=== PATIENT | male | born 1955 | race Caucasian/White ===

== ENCOUNTER 2020-09-07 12:45 | Outpatient (RCR) | payer MEDICARE, MEDICAID, SELFPAY | END 2020-09-15 15:05 | disposition home or self-care (01) | LOC: HO.WCC 12:45 | PROVIDERS: PCP Internal Medicine; Visit Provider Surgery | DX: E11.621 Type 2 diabetes mellitus with foot ulcer (principal); L97.522 Non-pressure chronic ulcer of other part of left foot with fat layer exposed; E11.51 Type 2 diabetes mellitus with diabetic peripheral angiopathy without gangrene; E11.69 Type 2 diabetes mellitus with other specified complication; M86.9 Osteomyelitis, unspecified; M87.9 Osteonecrosis, unspecified; Z79.4 Long term (current) use of insulin; Z79.2 Long term (current) use of antibiotics | CPT/HCPCS: 11044; 87071; 87073; 87077; 87186; 87205; 88305; 88311; 99212 ==

== ENCOUNTER 2021-01-18 15:00 | Outpatient (RCR) | payer MEDICARE, MEDICAID, SELFPAY ==
--- NOTE | 2020-12-19 13:38 | MHC.PT.EP ---
[facility] [place] Office [place] Office [place] Office [address] [phone] F: [phone] F: [phone] F: [phone] F: [phone] Physical Therapy Plan of Care Date of Evaluation: Date of Surgery: Diagnosis: Cerebral infarction, unspecified Assessment: Pt is a 65yo M with a PMH including CVA, diabetes, quadruple bypass and aortic valve replacement. He presents today with weakness s/p CVA in August. He has current impairments in decreased LE strength, decreased endurance, decreased balance, transfers, gait, and safety. He is limited functionally by standing, walking, and ADLs. He is a good candidate for skilled PT services to address current impairments in order to facilitate return to PLOF. Frequency and Duration: The patient will be seen 2x/week for 4 weeks Short Term Goals: Pt will perform sit<>stands with improved safety and RW management Pt will improve hip ABD by 1/2 grade Vice President Compliance Goals: Pt will demonstrate improvements in strength and endurance by achieving a score of at least 10 during 30 second sit to sand Pt will demonstrate improvements in functional mobility as evidenced by statistically significant improvement in LEFI outcome measure Treatment Plan: Modalities to reduce pain, spasms and effusion. Manual therapy to restore motion and function. Therapeutic exercise to improve strength and flexibility. Neuromuscular re-education for posture and balance. Therapeutic activities to return to functional activities of daily living. Electronically signed by: Mela Lugo, PT, DPT Please sign and return to therapist. Thank you for your referral.
--- NOTE | 2021-01-18 17:54 | MHC.PT.DC ---
[facility] [place] Office [place] Office [place] Office [address] Sheets [address] [phone] F: [phone] F: [phone] F: [phone] F: [phone] Physical Therapy Discharge Report Diagnosis: Cerebral infarction, unspecified Date of Surgery: Date of Evaluation: 12/18/20 Date of Discharge: 01/18/21 Treatments to Date: 7 Cancellations to Date: 2 No Shows to Date: Discharge Status: Achieved Goals Improved Function Independent with HEP Discharge Summary: Pt has made good progress since SOC and has demonstrated improvements in LE strength, safety, transfers, and gait with RW. He has met his STGs and made progress toward his LTGs. He reports he feels ready to be D/C from PT. Provided pt with printed, updated copy of HEP and GTB and pt verbalized understanding. Pt reports no further questions or concerns for PT at this time. Pt is being D/C from skilled PT services. No further skilled PT indicated at this time. Electronically signed by: Mela Lugo, PT, DPT Please sign and return to therapist. Thank you for your referral.
== END 2021-01-18 17:54 | disposition home or self-care (01) ==
LOC: HO.PT 15:00
PROVIDERS: PCP Internal Medicine; Visit Provider Internal Medicine
DX: I63.9 Cerebral infarction, unspecified (principal)
CPT/HCPCS: 97110; 97112; 97116; 97162; 97530

== ENCOUNTER 2021-07-12 11:12 | Outpatient (REF) | payer MEDICARE, MEDICAID, SELFPAY ==
[2021-07-12 11:36] LABS: MANUAL DIFF FLAG NO
[2021-07-12 11:48] LABS: Basophils Percent Auto 0.5 % (0-2); Eosinophils Absolute Auto 0.3 X10*3/uL (0.0-0.4); Eosinophils Percent Auto 3.4 % (0-4); Hematocrit 43.7 % (42.0-52.0); Hemoglobin 14.6 g/dl (14.0-18.0); Imm Gran Abs Auto 0.02 X10*3/uL (0.00-0.03); Imm Gran Pct Auto 0.3 % (0.0-0.4); Lymphocytes Absolute Auto 2.7 X10*3/uL (1.2-4.9); Lymphocytes Percent Auto 34.2 % (20-40); Mean Corpuscular HGB Conc 33.4 g/dl (31.0-36.0); Mean Corpuscular Hemoglobin 29.9 pg (27.0-33.0); Mean Corpuscular Volume 89.4 fL (80.0-98.0); Mean Platelet Volume 11.6 fL (9.4-12.4); Monocytes Absolute Auto 0.7 X10*3/uL (0.1-1.2); Monocytes Percent Auto 9.3 % (2-11); Neutrophils Absolute Auto 4.2 x10*3/uL (2.0-8.3); Neutrophils Percent Auto 52.3 % (45-73); Platelet Count 269 X10*3/uL (160-400); Red Blood Count 4.89 X10*6/uL (4.60-5.80); Red Cell Distribution Width 12.8 % (11.0-16.0)
[2021-07-12 11:55] LABS: Estimated Average Glucose 171 mg/dL; Hemoglobin A1c % 7.6 %
[2021-07-12 12:18] LABS: Alanine Aminotransferase 17 U/L (0-40); Albumin Level 4.6 g/dL (3.5-5.0); Alkaline Phosphatase 78 U/L (39-117); Anion Gap 15 (12-20); Aspartate Amino Transferase 14 U/L (5-37); Bilirubin Total 0.7 mg/dL (0.0-1.0); Blood Urea Nitrogen 17 mg/dL (9-16); Calcium 10.6 mg/dL (8.4-10.2); Carbon Dioxide 29 mmol/L (22-29); Chloride 99 mmol/L (96-108); Cholesterol 187 mg/dL; Estimated Glomerular Filt Rate > 60; Glucose Fasting 207 mg/dL (60-99); HDL Cholesterol 33 mg/dL; LDL Cholesterol Calculated 102 mg/dl; Potassium 4.7 mmol/L (3.3-5.1); Sodium 138 mmol/L (135-145); Total Protein 7.5 g/dL (6.5-8.0); Triglycerides 260 mg/dL
[2021-07-12 12:38] LABS: TSH reflex Free T4 2.85 uIU/mL (0.32-4.0); Vitamin D 25-OH Total 32.3 ng/mL (>30)
[2021-07-12 12:57] LABS: Folate 10.8 ng/mL (> or = 4.0); Vitamin B12 262 pg/mL (200-900)
== END 2021-07-12 11:13 | disposition home or self-care (01) ==
LOC: HO.LAB 11:12
PROVIDERS: PCP Internal Medicine; Visit Provider Internal Medicine
DX: I10 Essential (primary) hypertension (principal); E11.9 Type 2 diabetes mellitus without complications; E55.9 Vitamin D deficiency, unspecified; E53.8 Deficiency of other specified B group vitamins; E78.00 Pure hypercholesterolemia, unspecified
CPT/HCPCS: 36415; 80053; 80061; 82306; 82607; 82746; 83036; 84443; 85025

== ENCOUNTER 2021-07-13 | Outpatient (REF) | payer MEDICARE, MEDICAID, SELFPAY ==
[2021-07-13 16:10] LABS: Appearance Urine CLEAR; Color Urine YELLOW; Glucose Urine UA NEG (NEG); Leukocyte Esterase Urine NEG (NEG); Nitrite Urine NEG (NEG); Specific Gravity - Urine 1.015 (1.005-1.025); Urine Blood NEG (NEG); Urine Ketones NEG (NEG); Urine Protein NEG (NEG-TRACE)
[2021-07-13 17:34] LABS: Creatinine Urine 117.68 mg/dL; Microalbum/Creatinine Ratio Ur 20.3 ug/mg cr
== END 2021-07-13 00:01 | disposition home or self-care (01) ==
LOC: HO.LNP
PROVIDERS: Visit Provider Internal Medicine
DX: E11.9 Type 2 diabetes mellitus without complications (principal); I10 Essential (primary) hypertension
CPT/HCPCS: 81003; 82043

== ENCOUNTER 2022-07-19 10:50 | Outpatient (REF) | payer MEDICARE, MEDICAID, SELFPAY ==
[2022-07-19 12:11] LABS: Estimated Average Glucose 126 mg/dL; Hemoglobin A1C 150.7259 umol/L
[2022-07-19 12:44] LABS: Alanine Aminotransferase 11 U/L (0-40); Albumin Level 4.4 g/dL (3.5-5.0); Alkaline Phosphatase 63 U/L (39-117); Anion Gap 13 (12-20); Aspartate Amino Transferase 13 U/L (5-37); Bilirubin Total 0.7 mg/dL (0.0-1.0); Blood Urea Nitrogen 25 mg/dL (9-16); Carbon Dioxide 28 mmol/L (22-29); Chloride 106 mmol/L (96-108); Cholesterol 211 mg/dL; Estimated Glomerular Filt Rate > 60; Glucose Fasting 103 mg/dL (60-99); HDL Cholesterol 38 mg/dL; LDL Cholesterol Calculated 132 mg/dl; Potassium 4.5 mmol/L (3.3-5.1); Sodium 142 mmol/L (135-145); Total Protein 6.9 g/dL (6.5-8.0); Triglycerides 207 mg/dL
[2022-07-19 12:59] LABS: Vitamin D 25-OH Total 33.8 ng/mL (>30)
== END 2022-07-19 10:51 | disposition home or self-care (01) ==
LOC: HO.LAB 10:50
PROVIDERS: PCP Internal Medicine; Visit Provider Internal Medicine
DX: E11.9 Type 2 diabetes mellitus without complications (principal); E55.9 Vitamin D deficiency, unspecified; E78.00 Pure hypercholesterolemia, unspecified
CPT/HCPCS: 36415; 80053; 80061; 82306; 83036

== ENCOUNTER 2022-07-22 17:42 | Outpatient (REF) | payer MEDICARE, MEDICAID, SELFPAY ==
[2022-07-22 19:16] LABS: Appearance Urine Cloudy; Color Urine Yellow; Glucose Urine UA Negative (Negative); Leukocyte Esterase Urine Negative (Negative); Nitrite Urine Negative (Negative); PH 5.5 (5.0-9.0); Urine Blood Negative (Negative); Urine Ketones Negative (Negative); Urine Protein Negative (Neg-Trace)
== END 2022-07-22 17:43 | disposition home or self-care (01) ==
LOC: HO.LNP 17:42
PROVIDERS: Visit Provider Internal Medicine
DX: R30.0 Dysuria (principal)
CPT/HCPCS: 81003

== ENCOUNTER 2022-12-12 15:54 | Outpatient (AMB) | payer MEDICARE, SELFPAY ==
[2022-12-12 16:04] VITALS: BP 120/62; PULSE 113; BMI 24.7
--- NOTE | 2022-12-12 16:04 | A.OFFVIS_ITS ---
Intake Vital Signs 12/12/22 16:04 Height 5 ft 5 in Weight 148 lb 9.465 oz BMI 24.7 BP 120/62 Blood Pressure Location Lt brachial Position Sitting Pulse 113 H Intake Visit Reasons: overdue follow-up Sole Rounding Machine Operator Required: No Shower Doors And Panels Fabricator: Shower Doors And Panels Fabricator Present Accompanied by: Significant Other Allergies Penicillins Allergy (Unknown, Verified 12/12/22 16:08) RASH Medication List - Last Reconciled 12/12/22 by RICARDO Savage acetaminophen (Tylenol) 650 mg (2 x 325 mg) PO Q4H PRN atorvastatin 80 mg PO BEDTIME 90 days blood sugar diagnostic (FreeStyle Lite Strips) As [id number] a day In Vitro daily blood-glucose meter (FreeStyle Lite Meter kit) TEST 2-3 TIMES DAILY clopidogrel 75 mg PO DAILY doxycycline monohydrate 100 mg PO BID escitalopram oxalate 5 mg PO DAILY 30 days insulin glargine (Lantus Solostar U-100 Insulin) 20 units (0.2 mL) subcut QPM insulin lispro (Humalog KwikPen (U-100) Insulin) 8 - 18 units (0.08 - 0.18 mL) subcut TID isosorbide mononitrate ER 30 mg PO DAILY [LIGHTWEIGHT WHEELCHAIR As directed] meclizine 25 mg PO DAILY metformin 1,000 mg PO BID HPI overdue follow-up HPI Details Tye is a 67-year-old male with past medical history of hypertension, hyperlipidemia, diabetes, coronary artery disease, presumed aortic stenosis, status post 4 vessel coronary artery bypass grafting and bioprosthetic aortic valve replacement 08/30/2013, residual ischemic cardiomyopathy, EF last known to be 45-50% who presents for follow-up. His last prior visit to our office was 03/10/2018. Today he presents for cardiology follow-up as new patient as it has been greater than 3 years since his last visit. His tells me he has had a stroke and has difficulty with his speech and mobility. Upon entering the office I find him to be pale in color. He tells me he just vomited in the trash can. His states that he has episodes of dizziness when moving around and this makes him nauseous at times. She says he is mostly very sedentary at home. He ambulates only short distances using a walker. It has been hard for her to get him to office visits which is why they have not been here in for years. He denies having any chest discomfort at rest or during activity. He denies shortness of breath, palpitations, presyncope, syncope, falls. No PND, orthopnea or edema. Taking medications as directed. Offered ER visit for his current symptoms and he declines. 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 Slurred speech from prior CVA. Reports dizziness Card Denies chest pain, Denies chest pain at rest, Denies chest pain with activity, Reports rapid heart rate, Denies pedal edema, Denies edema, Denies leg edema, Denies lightheadedness, Denies palpitations, Denies dyspnea, Denies dyspnea on exertion and Denies orthopnea Resp Denies cough, Denies dyspnea and Denies dyspnea on exertion GI Denies hematochezia and Denies change in stool character Musc Details: generalized weakness, ambulates with walker Reports abnormal gait, Reports limited range of motion, Denies muscle cramps, Reports muscle weakness, Denies numbness, Denies radiating pain into limb, Denies stiffness and Denies tingling Neuro Reports abnormal gait, Reports dizziness, Denies numbness and Denies tingling Endo Denies palpitations Physical Exam Vital Signs: Last Vital Signs Pulse 113 H 12/12/22 16:04 BP 120/62 12/12/22 16:04 BMI result Body Mass Index 24.7 Const Other: sallow skin color, hands cold to touch General: cooperative and no acute distress Orientation/consciousness: patient oriented x3 Neck Neck: Yes normal visual inspection and Yes no JVD Resp Effort & Inspection: normal respiratory effort Auscultation: clear to auscultation bilaterally, no crackles, no rales, no rhonchi and no wheezes Cardio Jugular venous distension: no JVD Rate: tachycardic Rhythm: regular rhythm Heart sounds: S1 normal heart sound present, S2 normal heart sound present, no murmurs and no rubs Neuro General: patient oriented x3 Extrem General: Yes normal to inspection Psych Appearance: grossly normal Mental Status: mental status grossly normal Office Procedures EKG Details: Today, read by me, sinus tachycardia, ST and T-wave abnormality, consider inferior ischemia, rate 113, QTC 463 millisecond [id number], Complete Assessment & Plan Assessment & Plan (1) Coronary artery disease: Comment: S/P quadruple bypass in 2013 Code(s): I25.10 - Atherosclerotic heart disease of [place] coronary artery without angina pectoris Qualifiers: Associated angina: without angina Coronary Disease-Associated Artery/Lesion type: [place] artery [place] vs. transplanted heart: [place] heart Qualified Code(s): I25.10 - Atherosclerotic heart disease of [place] coronary artery without angina pectoris Plan: History of coronary artery disease. Coronary artery bypass grafting done 08/30/[address] Calderón. Parker to LAD, SVG to OM 1, om 2, right PDA. He did undergo bioprosthetic AVR at that time as well. He denies having any recent chest discomfort at rest or with activity. He admits to being mostly sedentary and walks only short distances with assistive device. He is not on aspirin for unclear reason. He is on Plavix, high-dose atorvastatin with ideal LDL goal less than 70. He also remains on isosorbide, for unclear reason. He is not on beta-ethel. Pulse rate elevated initially however patient nauseous and vomited in the room. Offered ER evaluation he declines. EKG done today showing sinus tachycardia, ST and T-wave abnormality suggesting possible inferior ischemia. After resting in pulse rate return to the 90s and blood pressure recheck 96/42. Will check lab work including BMP, CBC and lipid profile. Will check echocardiogram to assess EF, wall motion and valve function. Will check pharmacological nuclear stress test to assess for any ischemia. Emergency care if needed for symptoms. Plan to call him with test results, sooner appointment if needed. Will arrange for office visit in 3 months, sooner if needed. states that is difficult to get him in to the office. History of prior CVA and limited mobility. (2) Aortic valve stenosis, severe: Comment: S/P aortic valve replacement in 2013 - Dr. Nba Calderón Code(s): I35.0 - Nonrheumatic aortic (valve) stenosis Plan: History of bioprosthetic AVR, 08/30/2013. No recent echocardiogram for review. No significant murmur noted on examination. Will be obtaining updated echo as above. (3) Aortic valve replaced: Comment: 08/30/2013 aortic valve replacement with a 23 Magna pericardial valve (Dr. Nba Calderón) Code(s): Z95.2 - Presence of prosthetic heart valve (4) CVA (cerebrovascular accident): Code(s): I63.9 - Cerebral infarction, unspecified Plan: Reported to have had CVA in the last few years according to his . He has residual speech disturbances and slow mobility. He has episodes dizziness with ambulation which sounds like vertigo. describes him as being very sedentary. (5) Benign essential hypertension: Code(s): I10 - Essential (primary) hypertension Plan: Well controlled at this time. No med changes made at present. Following updated testing will consider stop of isosorbide and start of metoprolol. He had been on metoprolol in past. Unclear why it was stopped. EKG today shows sinus tach, rate 113, normal SC, QRS and QTC intervals. (6) Mixed hyperlipidemia: Code(s): E78.2 - Mixed hyperlipidemia Plan: [place] LDL goal less than 70 in patient with CAD. Labs done 07/19/2022 showed LDL 132. Repeat fasting lipid profile ordered. Continue high-dose atorvastatin. (7) History of quadruple bypass: Comment: 08/30/2013 quadruple coronary artery bypass grafting; parker to LAD, SVG to OM 1, om2 and right PDA Code(s): Z95.1 - Presence of aortocoronary bypass graft Orders: Orders Basic Metabolic Panel 12/12/22 I35.0 - Nonrheumatic aortic (valve) stenosis Lipid Panel 12/12/22 E78.5 - Hyperlipidemia, unspecified Complete Blood Count Auto Diff 12/12/22 R53.1 - Weakness CA echo transthoracic complete 12/12/22 I35.0 - Nonrheumatic aortic (valve) stenosis CA lexiscan stress w marj 12/12/22 I10 - Essential (primary) hypertension, I25.10 - Atherosclerotic heart disease of [place] coronary artery without angina pectoris, I35.0 - Nonrheumatic aortic (valve) stenosis, I63.9 - Cerebral infarction, unspecified, R94.31 - Abnormal electrocardiogram [ECG] [EKG] NM cardiolite stress test 12/12/22 I25.10 - Atherosclerotic heart disease of [place] coronary artery without angina pectoris, R94.31 - Abnormal electrocardiogram [ECG] [EKG] Coding Level of Care Code Est Pt Level 4 (99768) Diagnoses Coronary artery disease involving [place] coronary artery of [place] heart without angina pectoris I25.10 Associated angina: without angina Coronary Disease-Associated Artery/Lesion type: [place] artery [place] vs. transplanted heart: [place] heart Aortic valve stenosis, severe I35.0 Aortic valve replaced Z95.2 CVA (cerebrovascular accident) I63.9 Benign essential hypertension I10 Mixed hyperlipidemia E78.2 History of quadruple bypass Z95.1 CPT Codes EKG - CPT: [id number], Complete ([id number]) Time Spent (min) 30
== END 2022-12-12 16:45 | disposition home or self-care (01) ==
PROVIDERS: PCP Internal Medicine; Visit Provider Nurse Practitioner Family
DX: R00.0 Tachycardia, unspecified (principal)
CPT/HCPCS: 93010; 99214

== ENCOUNTER → 2022-12-12 15:54 | Outpatient (BNVA) | payer MEDICARE, SELFPAY | PROVIDERS: PCP Internal Medicine; Visit Provider Nurse Practitioner Family | DX: I25.10 Atherosclerotic heart disease of native coronary artery without angina pectoris (principal); I35.0 Nonrheumatic aortic (valve) stenosis; I63.9 Cerebral infarction, unspecified; I10 Essential (primary) hypertension; E78.2 Mixed hyperlipidemia; Z95.1 Presence of aortocoronary bypass graft; Z95.2 Presence of prosthetic heart valve | CPT/HCPCS: 93005; 99212 ==

== ENCOUNTER → 2023-02-11 08:36 | Outpatient (REF) | payer MEDICARE, SELFPAY ==
--- NOTE | 2023-02-11 08:46 | CA_ITS ---
Transthoracic Echocardiogram Patient (Last, First, Middle): Tye Santos, Gender: Male Date of : 1955 Age: 67 Procedure Date: 02/11/2023 Procedure Type: Transthoracic Echocardiogram Location: OP Height: 162.56 cm Weight: 63.5 kg BSA: 1.68 m2 Heart Rate: bpm BP: 110 / 60 mmHg Veneer Press Operator: TO Referring MD: Chelo León BILLIARD TABLE MECHANICAudi Symptoms: I35.0 - Nonrheumatic aortic (valve) stenosis Study Quality: Technically Difficult/Contrast ECG Rhythm: Sinus Conclusions: - The left ventricular systolic function is normal. The visually estimated ejection fraction is between 60-65%. - A bioprosthetic aortic valve is present. The prosthetic aortic valve appears to be functioning normally. Findings Procedure Information Contrast agent, definity, is being given per protocol without apparent complications. Left Ventricle Normal left ventricular cavity size. There is mildly increased left ventricular wall thickness. The left ventricular systolic function is normal. The visually estimated ejection fraction is between 60-65%. There is no evidence of regional wall motion abnormalities. Diastolic function is normal for age. There is moderate septal asymmetric hypertrophy. Right Ventricle Normal right ventricular cavity size. There is severely decreased right ventricular systolic function. Atria Both atria are normal in size. Aortic Valve A bioprosthetic aortic valve is present. The prosthetic aortic valve appears to be functioning normally. There is no aortic valve regurgitation. Mitral Valve There is mild anterior mitral leaflet thickening. There is mild mitral annular calcification. There is trace mitral valve regurgitation. There is no mitral valve stenosis. Pulmonic Valve There is trace pulmonic valve regurgitation. Tricuspid Valve Normal tricuspid valve structure. There is trace tricuspid valve regurgitation. There is no evidence of pulmonary hypertension. Great Vessels The asc aorta is normal in size. Small plaque is seen in the sinuses of Valsalva. Venous The inferior vena cava was not well visualized. Pericardium/Pleural There is no evidence of pericardial effusion. Prior Study Comparison No significant change compared to prior study dated: 07/16/2018. Measurements 2D Linear Measurements IVSd: 1.47 0.6-0.9/0.6-1.0 cm LVIDd: 3.49 3.9-5.3/4.2-5.9 cm LVIDd Index: 2.08 2.4-3.2/2.2-3.1 cm/m2 LVIDs: 2.53 2.0-3.6 cm LVPWd: 1.13 0.7-1.1 cm LA Diam: 3.40 2.7-3.8/3.0-4.0 cm LAIDs Index: 2.02 1.5-2.3 cm/m2 LV Mass: 190.69 67-162/88-224 g LV Mass Index: 113.51 43-95/49-115 g/m2 LVOT Diam: 1.90 3.0+(-)1.3 cm 2D Systolic Function EF 4C: 54.80 >55% Mitral Valve MV VTI: 0.21 MV Pk Santy: 1.19 MV Mn Santy: 0.56 MV Pk Grad: 6.00 MV Mn Grad: 1.00 MV Pk E: 0.37 MV PK A: 0.94 MV Decel Time: 267.00 E/A: 0.40 E'Lateral: 9.14 E'Medial: 4.35 E/E' Med: 8.50 E/E' Lat: 4.00 PHT: 78.00 MVA PHT: 2.82 MVA Continuity: 1.97 Decel [place]: 1.38 Aortic Valve AoV Pk Santy: 1.91 AoV Mn Santy: 1.26 AoV VTI: 0.32 AoV Pk Grad: 15.00 Aov Mn Grad: 7.00 NESS Cont.VTI: 1.30 LVOT LVOT Pk Santy: 0.83 LVOT Mn Santy: 0.60 LVOT VTI: 0.15 LVOT Pk Grad: 3.00 LVOT Mn Grad: 2.00 LVOT Diam: 1.90 LVOT Area: 2.84 Diastolic Function MV Pk E: 0.37 MV Pk A: 0.94 E/A: 0.40 E'Medial: 4.35 E/E' Med: 8.50 E' Laterial: 9.14 E/E' Lat: 4.00 Right Ventricle TVS' Santy: 6.31 Great Vessels Aorta Sinus of Valsalva: 3.20 2.0-3.5 cm Ao Asc: 3.60 2.1-3.4 cm Ao Arch: 2.70 Updated in Other Vendor System with Status of Final Ayaan Workman MD electronically signed on 02/11/2023 12:34:48 PM with status of Final
--- NOTE | 2023-02-11 08:46 | CA_ITS ---
Acquisition Time: 2023-02-11 10:15:11 Total Exercise Time: 00:02:00 Test Indications: Abnormal EKG, CAD Medications: atorvastatin plavix doxycycline escitalopram insulin glargine insulin lispro isosorbide meclizine metformin Protocol: LEXISCAN Max HR: 110 BPM 71% of Pred: 154 BPM Max BP: 118/064 mmHG Max Work Load: 1.0 METS Pharmacological stress test with Lexiscan injection, while sitting and kicking his legs, without anginal symptoms, without arrythmia, with normotensive response to injection, with nondiagnostic EKG for ischemia. In recovery he had vomiting which was treated with Aminophylline 75mg IVP to reverse Lexiscan with improvement in symptom. Nuclear images pending. Test reviewed with Dr Aranda. Referred By: Chelo León Overread By: Maria Luz Schulte
== END ==
LOC: HO.CARD 08:36
PROVIDERS: PCP Internal Medicine; Visit Provider Nurse Practitioner Family
DX: R94.31 Abnormal electrocardiogram [ECG] [EKG] (principal); I25.10 Atherosclerotic heart disease of native coronary artery without angina pectoris; I35.0 Nonrheumatic aortic (valve) stenosis; Z95.2 Presence of prosthetic heart valve
CPT/HCPCS: 78452; 93017; 93306; A9500; J0280; J2785; Q9957

== ENCOUNTER → 2023-02-11 08:46 | Outpatient (BNV) | payer MEDICARE, SELFPAY | PROVIDERS: PCP Internal Medicine; Visit Provider Internal Medicine | DX: I25.10 Atherosclerotic heart disease of native coronary artery without angina pectoris (principal); R94.31 Abnormal electrocardiogram [ECG] [EKG] | CPT/HCPCS: 78452; 93016; 93018; 93306 ==

== ENCOUNTER 2023-04-08 12:12 | Outpatient (AMB) | payer MEDICARE, SELFPAY ==
[2023-04-08 12:41] VITALS: BP 130/72; PULSE 88; O2SAT 98; BMI 24.3
--- NOTE | 2023-04-08 12:41 | MHC.PC.OV ---
Vital Signs 04/08/23 12:41 Height 5 ft 5 in Weight 146 lb BMI 24.3 BP 130/72 Blood Pressure Location Lt brachial Position Sitting Pulse 88 Pulse Source Pulse Oximeter Pulse Oximetry (%) 98 Oxygen Delivery Method Room Air Intake Visit Reasons: F/U Hackler Doll Wigs: Present Allergies Penicillins Allergy (Unknown, Verified 04/08/23 13:19) RASH Medication List - Last Reconciled 04/08/23 by Tony Soto MD acetaminophen (Tylenol) 650 mg (2 x 325 mg) PO Q4H PRN atorvastatin 80 mg PO BEDTIME 90 days blood sugar diagnostic (FreeStyle Lite Strips) As goeizttd-0-3 a day In Vitro daily blood-glucose meter (FreeStyle Lite Meter kit) TEST 2-3 TIMES DAILY clopidogrel 75 mg PO DAILY doxycycline monohydrate 100 mg PO BID insulin glargine (Lantus Solostar U-100 Insulin) 20 units (0.2 mL) subcut QPM insulin lispro (Humalog KwikPen (U-100) Insulin) 8 - 18 units (0.08 - 0.18 mL) subcut TID isosorbide mononitrate ER 30 mg PO DAILY [LIGHTWEIGHT WHEELCHAIR As directed] meclizine 25 mg PO DAILY metformin 1,000 mg PO BID metoprolol succinate ER 25 mg PO DAILY Tobacco use date assessed: 04/08/23 Fall risk assessment: No Falls in past year Last assessed Fall Risk: 04/08/23 Dental Screening Dental Screen Date: 04/08/23 Did you have a dental visit in the last 12 months?: Yes Did you have a dental problem in the last 6 months where you did not have access to dental care?: No Was dental information given to patient?: Patient has dentist HPI F/U HPI Details Patient comes in today for his follow up visit - was last seen by me in April 2022 Patient states that he feels okay His states that she took him off his Escitalopram 5 mg a couple of weeks ago as he was too drowsy/sedated and he gradually became more alert since she stopped giving him his Escitalopram Rx Patient denies any headaches or dizziness and states that he does not feel depressed at all presently Denies any chest pains, no SOB No nausea/vomiting, no abdominal pain No change in bowel habits noted He has no follow up labs done recently Patient had cardiac stress testing and echocardiogram done with cardiology last month and was reportedly told that his tests all came out good [facility] Medical History Osteomyelitis of toe Overweight (BMI 25.0-29.9) Depression REM sleep behavior disorder Vitamin D deficiency Mixed hyperlipidemia Benign essential hypertension Aortic valve stenosis, severe Coronary artery disease Peripheral vascular occlusive disease Amputation of toe Diabetic neuropathy Type 2 diabetes mellitus with hyperglycemia Hyperlipidemia Surgical History Amputation of toe of left foot Amputation of toe of right foot Aortic valve replaced History of quadruple bypass Family History Father Stroke Cancer Mother Stroke Cancer Diabetes Social History Housing: House Alcohol intake: never Patient Tobacco Use Status: Never used Tobacco e-Cigarette/Vaping Use: Never Used Second Hand Smoke Exposure: No service: No Current occupational status: retired and disabled Cognitive needs: Yes Hearing needs: No Vision needs: Yes Questionnaire PHQ-9 Over the last 2 weeks, how often have you been bothered by any of the following problems? 1. Little interest or pleasure in doing things: not at all 2. Feeling down, depressed, or hopeless: not at all 3. Trouble falling or staying asleep, or sleeping too much: not at all 4. Feeling tired or having little energy: not at all 5. Poor appetite or overeating: not at all 6. Feeling bad about yourself - or that you are a failure or have let yourself or your family down: not at all 7. Trouble concentrating on things, such as reading the newspaper or watching television: not at all 8. Moving or speaking so slowly that other people could have noticed. Or the opposite - being so fidgety or restless that you have been moving around a lot more than usual: not at all 9. Thoughts that you would be better off or of hurting yourself in some way: not at all Total score: 0 Depression Screening Interpretation: Negative Depression Screening Done: Yes 99981 - PHQ-9 Billing: Yes Source: Developed by Drs. Bryant L. Too, Gilbert Salcido and colleagues, with an educational babar from [employer]. Thrive Questionnaire Date Thrive assessed: 04/08/23 I am a: Patient What is your living situation today?: I have a steady place to live Within the past 12 months, did the food you bought not last and you didn't have the money to get more?: Never true Within the past 12 months, did you worry whether your food would run out before you got money to buy more?: Never true Do you have trouble paying for medicines?: No Do you have trouble getting transportation to medical appointments?: No Do you have trouble paying your heating and electricity bill?: No Do you have trouble taking care of your child, family member or friend?: No Do you have trouble with day-to-day activities such as bathing, preparing meals, shopping, managing finances, etc.?: No Are you currently unemployed and looking for a job?: No Are you interested in more education?: No Please select the resources that you would like help with: None Currently or been in a relationship where the following occur: no concerns reported THRIVE Score: 0 AUDIT C Alcohol Use Questionnaire (AUDIT-C) 1. How often do you have a drink containing alcohol?: Never 3. How often do you have six or more drinks on one occasion?: Never Total Score: 0 Score Reviewed/Action Taken: Yes AISHWARYA-7 AMB Questionnaire AISHWARYA-7 Date AISHWARYA - 7 assessed: 04/08/23 Feeling nervous, anxious, or on edge: 0 = Not at all Not being able to stop or control worryin = Not at all Worrying too much about different things: 0 = Not at all Trouble relaxin = Not at all Being so restless that it is hard to sit still: 0 = Not at all Becoming easily annoyed or irritable: 0 = Not at all Feeling afraid as if something awful might happen: 0 = Not at all Total AISHWARYA-7 score (0-4 normal; 5-9 mild; 10-14 moderate; 15-21 severe): 0 Source: Developed by Drs. Bryant Gage, Gilbert Salcido and colleagues, with an educational babar from [employer]. Review of Systems Const Denies chills, Reports fatigue, Denies fever(s) and Denies headache(s) ENT Denies dysphagia, Denies dizziness, Denies otalgia, Denies headache(s), Denies neck pain, Denies odynophagia, Denies sinus pain and Denies sore throat Card Denies chest pain, Denies palpitations and Denies dyspnea Resp Denies cough and Denies dyspnea GI Denies abdominal pain, Denies constipation, Denies dysphagia, Denies heartburn, Denies diarrhea, Denies nausea, Denies odynophagia and Denies vomiting Denies dysuria, Denies nocturia and Denies urinary frequency Musc Reports abnormal gait (uses a walker when ambulating; has prosthetic right leg), Denies back pain and Denies neck pain Skin/Breast Denies rash Neuro Reports abnormal gait (uses a walker when ambulating; has prosthetic right leg), Denies dizziness and Denies headache(s) Psych Denies anxiety and Denies depression Endo Reports fatigue and Denies palpitations Physical exam (Primary Care) Vital Signs: Last Vital Signs Pulse 88 04/08/23 12:41 BP 130/72 04/08/23 12:41 Pulse Ox 98 04/08/23 12:41 Oxygen Delivery Method Room Air 04/08/23 12:41 BMI result Body Mass Index 24.3 Tobacco/Smoking Status: Tobacco use Status Tobacco use date assessed 04/08/23 04/08/23 12:43 Patient Tobacco Use Status Never used Tobacco 04/08/23 12:41 e-Cigarette/Vaping Use Never Used 04/08/23 12:41 PHQ-9: PHQ-9 Score PHQ-9: Total score 0 04/08/23 12:57 Depression Screening Interpretation: Negative Thrive Assessment: Date of Thrive Assessment Date Thrive assessed 04/08/23 04/08/23 12:43 Currently or been in a relationship where the following occur: no concerns reported Const General: no acute distress and alert HENMT Ears: TM's normal bilaterally and EAC's normal Throat: Yes posterior oropharynx normal and Yes tonsils normal (no TP congestion noted) Neck Neck: Yes no lymphadenopathy and Yes supple Resp Auscultation: clear to auscultation bilaterally, no rales and no wheezes Cardio Rate: regular rate Rhythm: regular rhythm Heart sounds: no murmurs GI Palpation (GI): Soft to palpation and nontender Auscultation: normal bowel sounds Skin Rashes: no rashes Extrem Other: 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 General: Yes no clubbing, cyanosis or edema (on left lower extremity; S/P right BKA) Results AMB Hemoglobin A1c AMB Hemoglobin A1c 6.2 % Last Edit by CECILIA Galeas on 04/08/23 12:58 Results Reviewed Results Reviewed: Laboratory Last Values Hgb A1c (Clinic) 6.2 % (4.0-6.0) H 04/08/23 12:43 Assessment and Plan Assessment & Plan (1) Type 2 diabetes mellitus with hyperglycemia: Code(s): E11.65 - Type 2 diabetes mellitus with hyperglycemia Qualifiers: Diabetes mellitus emt intermediate insulin use: with emt intermediate use Qualified Code(s): E11.65 - Type 2 diabetes mellitus with hyperglycemia; Z79.4 - jail (current) use of insulin Plan: In-office HgbA1c done today is at 6.2% (HgbA1c was at 6.0% back in July 2022) - goal is at least < 7.5% Reinforced diabetic diet Continue Lantus 20 units QD, Humalog 8 to 18 units TID with meals per sliding scale and Metformin 1000 mg BID Follow-up with endocrinology as scheduled (2) Coronary artery disease: Comment: S/P quadruple bypass in 2013 Code(s): I25.10 - Atherosclerotic heart disease of [place] coronary artery without angina pectoris Qualifiers: Coronary Disease-Associated Artery/Lesion type: [place] artery [place] vs. transplanted heart: [place] heart Associated angina: without angina Qualified Code(s): I25.10 - Atherosclerotic heart disease of [place] coronary artery without angina pectoris Plan: Currently asymptomatic Continue Aspirin 81 mg QD, Clopidogrel 75 mg QD and Isosorbide Mononitrate ER 30 mg QD He had cardiolite stress testing and echocardiogram done last month (February 2023) and his tests all came out okay Follow-up with cardiology as scheduled (3) Mixed hyperlipidemia: Code(s): E78.2 - Mixed hyperlipidemia Plan: Reinforced low-cholesterol diet Continue Atorvastatin 80 mg QD and Ezetimibe 10 mg QD Will have patient recheck his labs and fasting lipids in 3 months for follow-up (4) Aortic valve stenosis, severe: Comment: S/P aortic valve replacement in 2013 - Dr. 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 Continue Cilostazol 50 mg BID and Clopidogrel 75 mg QD Follow-up with Infectious Disease and vascular surgery as scheduled Was reassured by vascular surgery last year that his bypass graft remains patent based on recent US - gets repeat US every 6 months for continuing surveillance (7) Vitamin D deficiency: Code(s): E55.9 - Vitamin D deficiency, unspecified Plan: Continue Vitamin D3 2000 units QD (8) REM sleep behavior disorder: Code(s): G47.52 - REM sleep behavior disorder Plan: Continue Gabapentin 600 mg Q HS Follow up with neurology as scheduled (9) Osteomyelitis of toe: Comment: S/P amputation of left 2nd toe on 09/19/2020; S/P right 5th toe amputation in 05/2017; S/P left 5th toe amputation of toe 01/30/2018; right 1st toe amputation in 08/2019 Code(s): M86.9 - Osteomyelitis, unspecified Plan: Resolved - left toe wound/stump has reportedly healed up completely now Follow-up with vascular surgery as scheduled (10) Depression: Code(s): F32.A - Depression, unspecified Qualifiers: Depression Type: major depressive disorder Major depression recurrence: recurrent Active/Remission status: currently active Major depression episode severity: unspecified Qualified Code(s): F33.9 - Major depressive disorder, recurrent, unspecified Plan: Was on Sertraline 50 mg QD previously but he apparently stopped taking this at some point Was then started on Escitalopram 5 mg QD and he took this for a while until his stopped this a couple of weeks ago due to sedation States that patient has been more alert since and he denies feeling depressed at this time Will continue to hold off on any additional Rx at this time but they are encouraged to call if patient starts to feel depressed again at any time Plan Follow up in 3 months Orders: Orders AMB Hemoglobin A1c Today E11.65 - Type 2 diabetes mellitus with hyperglycemia Complete Blood Count Auto Diff 3 Months D64.9 - Anemia, unspecified Lipid Panel 3 Months E78.00 - Pure hypercholesterolemia, unspecified Comprehensive [place]. Panel Fast 3 Months E78.00 - Pure hypercholesterolemia, unspecified Microalbumin, Random (w Creat) 3 Months E11.9 - Type 2 diabetes mellitus without complications Vitamin D 25-OH Total 3 Months E55.9 - Vitamin D deficiency, unspecified Hemoglobin A1c 3 Months E11.9 - Type 2 diabetes mellitus without complications TSH reflex Free T4 3 Months E78.00 - Pure hypercholesterolemia, unspecified UA CC w/rflx Micro + Cult 3 Months R30.0 - Dysuria Coding Level of Care Code Est Pt Level 4 (86647) Diagnoses Type 2 diabetes mellitus with hyperglycemia, with long-term current use of insulin E11.65; Z79.4 Diabetes mellitus nursing home insulin use: with nursing home use Coronary artery disease involving [place] coronary artery of [place] heart without angina pectoris I25.10 Coronary Disease-Associated Artery/Lesion type: [place] artery [place] vs. transplanted heart: [place] heart Associated angina: without angina Mixed hyperlipidemia E78.2 Aortic valve stenosis, severe I35.0 Benign essential hypertension I10 Peripheral vascular occlusive disease I73.9 Vitamin D deficiency E55.9 REM sleep behavior disorder G47.52 Osteomyelitis of toe M86.9 Episode of recurrent major depressive disorder, unspecified depression episode severity F33.9 Depression Type: major depressive disorder Major depression recurrence: recurrent Active/Remission status: currently active Major depression episode severity: unspecified
== END 2023-04-08 13:25 | disposition home or self-care (01) ==
PROVIDERS: PCP Internal Medicine; Visit Provider Internal Medicine
DX: E11.65 Type 2 diabetes mellitus with hyperglycemia (principal); Z79.4 Long term (current) use of insulin; I73.9 Peripheral vascular disease, unspecified; M86.9 Osteomyelitis, unspecified; F33.9 Major depressive disorder, recurrent, unspecified; I25.10 Atherosclerotic heart disease of native coronary artery without angina pectoris; E78.2 Mixed hyperlipidemia; I35.0 Nonrheumatic aortic (valve) stenosis; I10 Essential (primary) hypertension; E55.9 Vitamin D deficiency, unspecified; G47.52 REM sleep behavior disorder
CPT/HCPCS: 83036; 99214

== ENCOUNTER 2023-05-27 13:16 | Outpatient (AMB) | payer MEDICARE, SELFPAY ==
--- NOTE | 2023-05-27 13:35 | MHC.OFFVIS ---
Intake Vital Signs 05/27/23 13:36 Height 5 ft 5 in Weight 143 lb 4.807 oz BMI 23.8 BP 122/74 Blood Pressure Location Lt brachial Position Sitting Pulse 88 Intake Visit Reasons: r/s 04/07/23 3 mos followup Intake Note: 3 month follow-up hearts doing ok Strategic Planning Analyst Required: No Senior Analyst Developer: Senior Analyst Developer Present Accompanied by: Spouse Allergies Penicillins Allergy (Unknown, Verified 04/08/23 13:19) RASH Medication List - Last Reconciled 05/27/23 by Markus Venegas MD acetaminophen (Tylenol) 650 mg (2 x 325 mg) PO Q4H PRN atorvastatin 80 mg PO BEDTIME 90 days blood sugar diagnostic (FreeStyle Lite Strips) As lyigsgnf-7-7 a day In Vitro daily blood-glucose meter (FreeStyle Lite Meter kit) TEST 2-3 TIMES DAILY clopidogrel 75 mg PO DAILY doxycycline monohydrate 100 mg PO BID insulin glargine (Lantus Solostar U-100 Insulin) 20 units (0.2 mL) subcut QPM insulin lispro (Humalog KwikPen (U-100) Insulin) 8 - 18 units (0.08 - 0.18 mL) subcut TID isosorbide mononitrate ER 30 mg PO DAILY [LIGHTWEIGHT WHEELCHAIR As directed] meclizine 25 mg PO DAILY metformin 1,000 mg PO BID metoprolol succinate ER 25 mg PO DAILY HPI HPI Comments History of Present Illness Details Tye comes for follow-up. Accompanied by his . As per the he is very sedentary. He had a fall 2 days ago but does not recall. says memory is also been an issue. He continues to have. She issues as well as balance issues. This has weakness on left side of his face. No cardiac symptoms to report. Denies any worsening chest pain or shortness of breath with exertion. No orthopnea, PND, leg edema. He has not having lightheadedness any longer. Denies any syncopal episodes. Takes all his medications regularly. [facility] Medical History Osteomyelitis of toe Overweight (BMI 25.0-29.9) Depression REM sleep behavior disorder Vitamin D deficiency Mixed hyperlipidemia Benign essential hypertension Aortic valve stenosis, severe Coronary artery disease Peripheral vascular occlusive disease Amputation of toe Diabetic neuropathy Type 2 diabetes mellitus with hyperglycemia Hyperlipidemia Surgical History Amputation of toe of left foot Amputation of toe of right foot Aortic valve replaced History of quadruple bypass Family History Father Stroke Cancer Mother Stroke Cancer Diabetes Social History Housing: House Alcohol intake: never Patient Tobacco Use Status: Never used Tobacco e-Cigarette/Vaping Use: Never Used Second Hand Smoke Exposure: No service: No Current occupational status: retired and disabled Cognitive needs: Yes Hearing needs: No Vision needs: Yes Review of Systems Const Denies chills, Denies fatigue, Denies fever(s), Denies frequent falls, Denies weakness, Denies weight gain and Denies weight loss ENT Denies dizziness Card Denies chest pain, Denies leg edema, Denies lightheadedness, Denies palpitations, Denies dyspnea, Denies dyspnea on exertion, Denies orthopnea and Denies other (loss of consciousness) Resp Denies cough, Denies dyspnea and Denies dyspnea on exertion GI Denies hematochezia and Denies change in stool character Musc Denies abnormal gait, Denies muscle weakness, Denies numbness, Denies radiating pain into limb and Denies tingling Neuro Denies abnormal gait, Denies dizziness, Denies frequent falls, Denies numbness, Denies tingling and Denies weakness Endo Denies fatigue and Denies palpitations Physical Exam Vital Signs: Last Vital Signs Pulse 88 05/27/23 13:36 BP 122/74 05/27/23 13:36 BMI result Body Mass Index 23.8 Const Other: sallow skin color, hands cold to touch General: cooperative, no acute distress, alert and awake Nutritional Appearance: other (Frail elderly man) Orientation/consciousness: patient oriented x3 Limitations: ambulation with walker Neck Neck: Yes normal visual inspection and Yes no JVD Resp Effort & Inspection: normal respiratory effort Auscultation: clear to auscultation bilaterally, no crackles, no rales, no rhonchi and no wheezes Cardio Jugular venous distension: no JVD Rate: tachycardic Rhythm: regular rhythm Heart sounds: S1 normal heart sound present, S2 normal heart sound present, no murmurs and no rubs Neuro General: patient oriented x3 Extrem General: Yes normal to inspection Psych Appearance: grossly normal Mental Status: mental status grossly normal Assessment & Plan Assessment & Plan (1) Aortic valve replaced: Comment: 08/30/2013 aortic valve replacement with a 23 Magna pericardial valve (Dr. Nba Calderón) Code(s): Z95.2 - Presence of prosthetic heart valve Plan: Status post bioprosthetic aortic valve replacement for significant aortic stenosis. Clinically seems to be working well. is worried about potential failure of a bioprosthetic aortic valve. I told her that clinically it seems to be working well. Will continue to monitor annually by echocardiogram. SBE prophylaxis as per [facility] guidelines. Continue aggressive risk factor modification see below. Advised to call me with any sudden change in his symptoms. (2) Coronary artery disease: Comment: S/P quadruple bypass in 2013 Code(s): I25.10 - Atherosclerotic heart disease of [place] coronary artery without angina pectoris Qualifiers: Coronary Disease-Associated Artery/Lesion type: [place] artery [place] vs. transplanted heart: [place] heart Associated angina: without angina Qualified Code(s): I25.10 - Atherosclerotic heart disease of [place] coronary artery without angina pectoris Plan: CAD status post coronary artery bypass grafting with small area of ischemia. No symptoms of angina and therefore conservative medical treatment will pursued. Continue current Plavix therapy. Continue high-intensity statin therapy with target goal LDL closer to 60 mg/dL. Continue metoprolol and isosorbide therapy. Blood pressure is currently well optimized advised to monitor the same at home. Continue aggressive management diabetes goal hemoglobin A1c less than 7%. Will follow up in the clinic in 9 months time after echocardiogram. Thank you for allowing me to partake in his care Coding Level of Care Code Est Pt Level 4 (15261) Diagnoses Aortic valve replaced Z95.2 Coronary artery disease involving [place] coronary artery of [place] heart without angina pectoris I25.10 Coronary Disease-Associated Artery/Lesion type: [place] artery [place] vs. transplanted heart: [place] heart Associated angina: without angina
[2023-05-27 13:36] VITALS: BP 122/74; PULSE 88; BMI 23.8
== END 2023-05-27 14:03 | disposition home or self-care (01) ==
PROVIDERS: PCP Internal Medicine; Visit Provider Internal Medicine Cardiovascular Disease
DX: Z95.2 Presence of prosthetic heart valve (principal); I25.10 Atherosclerotic heart disease of native coronary artery without angina pectoris
CPT/HCPCS: 99214

== ENCOUNTER → 2023-05-27 13:16 | Outpatient (BNVA) | payer MEDICARE, SELFPAY | PROVIDERS: PCP Internal Medicine; Visit Provider Internal Medicine Cardiovascular Disease | DX: I25.10 Atherosclerotic heart disease of native coronary artery without angina pectoris (principal); Z95.2 Presence of prosthetic heart valve | CPT/HCPCS: 99212 ==

== ENCOUNTER → 2024-08-20 23:59 | Outpatient (BNV) | payer MEDICARE, SELFPAY | PROVIDERS: PCP Internal Medicine; Visit Provider Internal Medicine | DX: E11.51 Type 2 diabetes mellitus with diabetic peripheral angiopathy without gangrene (principal); D64.9 Anemia, unspecified; I10 Essential (primary) hypertension | CPT/HCPCS: G0180 ==

== ENCOUNTER 2024-10-22 15:42 | Outpatient (AMB) | payer MEDICARE, SELFPAY ==
--- OUTSIDE RECORDS SUMMARY | 2024-02-10 09:30 | XMS_ITS ---
Author Organization [facility] Address [address] [place] [address] Care Team Providers Care Cryptologic Supervisor Name Role Phone Charles ORTEGA, [place] Primary Care Provider Jia Oseguera Unavailable [phone] Allergies Allergen (clinical drug ingredient) Drug/Non Drug Allergy documented on EMR Reaction Allergy Type Onset Date Status Penicillin Unknown Drug Allergy Active Medications Medication SIG (Take, Route, Frequency, Duration) Notes Start Date End Date Status Gabapentin Orally Not-Takin g HumaLOG 100 UNIT/ML INJECT 50 UNITS 3 TI MES A DAY WITH MEALS Subcutaneous; Duration: 6 Active Vitamin D3 1000 UNIT 1 capsule Orally On a day Not-Taking Plavix 75 MG Orally Not-Michael ing Sertraline HCl 50 MG Orally Not-Taking Ezetimibe 10 MG TAKE 1 TABLET BY ERIK TH EVERY DAY Oral; Duration: 30 Not-Taking Aspirin 81 MG 1 tablet Orally Once a day Not-Taking Docusate Sodium 100 MG TAKE ONE CAPSULE TWICE A DAY NEEDED FOR CONSTIPATION Oral; Duration: 30 Not-Taking Lantus SoloStar 100 UNIT/ML INJECT 50 UNITS ONCE A DAY SUBCUTANEOUS 30 DAYS Subcutaneous; Duration: 30 Active metFORMIN HCl 1000 MG 1 tablet Oral twic e a day; Duration: 30 days Active Atorvastatin Calcium 80 MG 1 tablet Orally Once a day Active Clopidogrel Bisulfate Active Atorvastatin Calcium Not-Taking Doxycycline Hyclate 100 MG 1 capsule Orally Active Isosorbide Dinitrate 30 MG 1 tablet Orally Active Ciclopirox Olamine 0.77 % 1 application to affected area Externally Twice a day; Duration: 30 days Not-Taking Extra Depth Orthopedic Shoes (1 Pair) with Customized Heat Molded Multidensity Innersoles (3 Pair) as directed Dx: IDDM/PVD (E10.59), Hammertoe Foot Deformity (M20.41,M20.42), Preulcerative Skin Lesion(s) (L85.1 12/15/2017 Not-Taking Social History Tobacco Use: Social History Observation Description Date Details (start date - stop date) Never Smoker NA - NA Tobacco use other than smoking: Question Answer Notes Are you an other tobacco user? No Tobacco Control (Standard) Question Answer Notes Tobacco use: Nonsmoker Additional Findings: Tobacco non-user Current no nsmoker AUDIT-C (Standard) Question Answer Notes Did you have a drink containing alcohol in the p ast year? No Points 0 Interpretation Negative Encounters Encounter Location Date Provider Diagnosis [facility] [address] [id number] 02/10/2024 Jia Boss Plan Of Treatment No Information Progress Notes * Rocky COSTAioDOB:1955 (69 yo M)Acc No.[id number]:02/10/2024 Progress Notes Patient: Tye MEJIA Provider: Vandana Boss DPM :1955 A ge:68 Y S ex:Male Date:02/10/2024 Address:[address] [place] [id number] Pcp:Tony Soto MD Subjective: * Chief Complaints: * * ROS: G eneral/Constitutional: Nausea d enies. V omiting d enies. H nate Thirst d enies. L oss appetite a dmits. C hills d enies. F atigue d enies.?Fever d enies. N ight Sweats d enies. U nexplained weight loss d enies. U nexplained weight gain d enies. H EENTM: Dentures d enies. D izziness d enies. G lasses/contacts a dmits. R etinopathy d enies. B lurred/double vision d enies. T MJ?denies. D ischarge/drainage d enies. I mplants d enies. S ore throat d enies. D ental implants d enies. H perry of hearing d enies. D ifficulty chewing/swallowing/speaking d enies. N ose bleeds d enies. S ore mouth d enies. ? R espiratory: On Oxygen d enies. P neumonia/pleurisy d enies.?Bronchitis d enies. E mphysema d enies. C oughing d enies. C ough blood?denies. S hortness of breath d enies. W heezing d enies. C ardiovascular: Pacemaker d enies. M [employer] SYSTEM[employer] ENGINEER d enies. W PW d enies. C HF d enies. H eart attack d enies. S eptal defect d enies. R apid beat d enies. C hest pain d enies. A trial Fib. d enies. M urmur/Palpitations d enies. G astrointestinal: Hemorrhoids d enies. S tomach/Abdominal pain d enies. D ark blood stool d enies. I rritable bowel d enies. C onstipation d enies. D iarrhea d enies. H ematology: Swelling d enies. C lots d enies. V aricose Veins d enies. B ruising d enies. B leeding problem d enies. G enitourinary: Blood urine d enies. F requent/Painfu/urination/bladder control d enies. K idney stones d enies. I nfection (UTI) d enies. N ephropathy d enies. s ex trans dis (STD) d enies. P rostate d enies. M usculoskeletal: Hammertoes d enies. B unions d enies. B ack Pain d enies. M uscle Cramps/ Resting d enies. M uscle cramps / walking d enies.?Generalized aches and pains d enies. W eakness d enies. I nteg.: French d enies. S cars d enies. C orns/calluses?denies. I ngrown nails d enies. P ainful nails d enies. O pen Sores d enies. R ashes d enies. N eurologic: Difficulty sleeping d enies. B rain disorder d enies. N umbness d enies. B alance trouble d enies. C onfusion d enies. F ainting/blackouts d enies. T ingling d enies. T remors d enies. * Medical History: H eart attack, Diabetes mellitus, High blood pressure, Heart disease, CAD, Arthritis, Depression, Chicken pox, Stroke, Memory loss, Replacement Heart Valves. * Surgical History: h eart surgery unspecified , [place] 5[place] [place], Left 5th [place] am[place] [facility] [place], valve surgery . * Hospitalization/Major Diagno stic Procedure: H - St[place] 01/2017, [facility] [place], [facility] [place] 5th [place] amputa[place] 05/27/2017, [facility] [place] and got [place] in the eye brow 09/27, [facility] [place] Left 5th toe 01/2018. * Family History: M other: , diagnosed with Other malignant neoplasm of unspecified site, Diabetic - NIDDM, Unspecified cerebral artery occlusion with cerebral infarction, Family history of arthritis. Father: , diagnosed with Diabetic - NIDDM, Family history of arthritis. S pouse: alive. * Social History: T obacco Use: T obacco use other than smoking A re you an other tobacco user? N o Tobacco Control (Standard) T obacco use: N onsmoker A dditional Findings: Tobacco non-user C urrent nonsmoker D rugs/Alcohol: D rugs H ave you used drugs other than those for medical reasons in the past 12 months? N o M iscellaneous: C affeine: yes. Children: yes, three. Exercise: no. Marital status: . Occupation: retired, disabled. D rug/Alcohol: A CHARLIE-C (Standard) D id you have a drink containing alcohol in the past year? N o P oints 0 I nterpretation N egative * Medications: T aking Atorvastatin Calcium 80 MG Tablet 1 tablet Orally Once a day , Taking Doxycycline Hyclate 100 MG Capsule 1 capsule Orally , Taking Isosorbide Dinitrate 30 MG Tablet 1 tablet Orally , Taking Clopidogrel Bisulfate , Taking Lantus SoloStar 100 UNIT/ML Solution Pen-injector INJECT 50 UNITS ONCE A DAY SUBCUTANEOUS 30 DAYS Subcutaneous , Taking metFORMIN HCl 1000 MG Tablet 1 tablet Oral twice a day , Taking HumaLOG 100 UNIT/ML Solution INJECT 50 UNITS 3 TIMES A DAY WITH MEALS Subcutaneous , Not-Taking/PRN Atorvastatin Calcium , Not-Taking/PRN Aspirin 81 MG Tablet Chewable 1 tablet Orally Once a day , Not-Taking/PRN Docusate Sodium 100 MG Capsule TAKE ONE CAPSULE TWICE A DAY NEEDED FOR CONSTIPATION Oral , Not-Taking/PRN Ezetimibe 10 MG Tablet TAKE 1 TABLET BY MOUTH EVERY DAY Oral , Not-Taking/PRN Gabapentin Tablet Orally , Not-Taking/PRN Plavix 75 MG Tablet Orally , Not-Taking/PRN Sertraline HCl 50 MG Tablet Orally , Not-Taking/PRN Vitamin D3 1000 UNIT Capsule 1 capsule Orally Once a day , Not-Taking/PRN Ciclopirox Olamine 0.77 % Cream 1 application to affected area Externally Twice a day , Not-Taking/PRN Extra Depth Orthopedic Shoes (1 Pair) with Customized Heat Molded Multidensity Innersoles (3 Pair) as directed Dx: IDDM/PVD (E10.59), Hammertoe Foot Deformity (M20.41,M20.42), Preulcerative Skin Lesion(s) (L85.1 * Allergies: P enicillin. Objective: * Vitals: Assessment: Plan: * Treatment: * Images: * The named appointment provid er may or may not be the originator of this progress note, and it is not deemed complete until electronically signed by the appointment provider. Sign off status: Pending * Provider: Vandana Boss DPM Date: Generated for Dany feliz/Maryjane/Tato on: 0 10/22/2024 05:45 PM EDT
[2024-10-22 15:44] VITALS: BP 118/62; PULSE 78; O2SAT 95; BMI 18.9
--- NOTE | 2024-10-22 15:44 | MHC.PC.OV ---
Vital Signs 10/22/24 15:44 Height 5 ft 5 in Weight 113 lb 5.082 oz BMI 18.9 BP 118/62 Blood Pressure Location Lt brachial Position Sitting Pulse 78 Pulse Source Pulse Oximeter Pulse Oximetry (%) 95 Oxygen Delivery Method Room Air Intake Visit Reasons: Cardiomyopathy, CAD, hyperlipidemia, DM-comment Abseiling Instructor Required: No Accompanied by: Self / Same As Patient Allergies Penicillins Allergy (Unknown, Verified 10/22/24 16:20) RASH Medication List - Last Reconciled 10/24/24 by Tony Soto MD acetaminophen (Tylenol) 650 mg (2 x 325 mg) PO Q4H PRN atorvastatin 80 mg PO BEDTIME 90 days blood sugar diagnostic (FreeStyle Lite Strips) As slixdexq-3-4 a day In Vitro daily blood-glucose meter (FreeStyle Lite Meter kit) TEST 2-3 TIMES DAILY clopidogrel 75 mg PO DAILY doxycycline monohydrate 100 mg PO BID insulin glargine (Lantus Solostar U-100 Insulin) 20 units (0.2 mL) subcut QPM insulin lispro (Humalog KwikPen (U-100) Insulin) 8 - 18 units (0.08 - 0.18 mL) subcut TID isosorbide mononitrate ER 30 mg PO DAILY [LIGHTWEIGHT WHEELCHAIR As directed] meclizine 25 mg PO DAILY metformin 1,000 mg PO BID metoprolol succinate ER 25 mg PO DAILY nut.tx.gluc.intol,lac-free,soy (Glucerna oral liquid) 1 ea PO TIDWMEAL 30 days Tobacco use date assessed: 10/22/24 Fall risk assessment: No Falls in past year Last assessed Fall Risk: 10/22/24 Dental Screening Dental Screen Date: 10/22/24 Did you have a dental visit in the last 12 months?: No Did you have a dental problem in the last 6 months where you did not have access to dental care?: No Was dental information given to patient?: Patient has dentist HPI Cardiomyopathy, CAD, hyperlipidemia, DM-comment HPI Details Patient comes in today for his follow up visit - was last seen by me over a year and a half ago on 04/08/2023 Patient states that he currently feels okay although per his , patient has on and off confusion He was admitted to the hospital at [facility] a couple of times a few months ago for infection of the toes on his left foot He has been receiving [facility] services at home for wound care services since his discharge until all of his wounds healed up and per records from [facility], he was discharged from their services at the end of August 2024 His states that patient currently has no acute wounds or lesions on his lower extremities Patient denies any headaches or dizziness Denies any chest pains, no shortness of breath No nausea/vomiting, no abdominal pain No change in bowel habits noted His adds that patient has been losing a lot of weight over the past few months despite eating of the meals that are provided to him regularly every day [facility] Medical History (Updated 10/24/24 @ 10:37 by Tony Soto MD) Diabetes mellitus Osteomyelitis of toe Overweight (BMI 25.0-29.9) Depression REM sleep behavior disorder Vitamin D deficiency Mixed hyperlipidemia Benign essential hypertension Aortic valve stenosis, severe Coronary artery disease Peripheral vascular occlusive disease Amputation of toe Diabetic neuropathy Type 2 diabetes mellitus with hyperglycemia Hyperlipidemia Surgical History Amputation of toe of left foot Amputation of toe of right foot Aortic valve replaced History of quadruple bypass Family History Father Stroke Cancer Mother Stroke Cancer Diabetes Social History Housing: House Alcohol intake: never Patient Tobacco Use Status: Never used Tobacco e-Cigarette/Vaping Use: Never Used Second Hand Smoke Exposure: No service: No Current occupational status: retired and disabled Cognitive needs: Yes Hearing needs: No Vision needs: Yes Questionnaire PHQ-9 Over the last 2 weeks, how often have you been bothered by any of the following problems? 1. Little interest or pleasure in doing things: nearly every day 2. Feeling down, depressed, or hopeless: more than half the days 3. Trouble falling or staying asleep, or sleeping too much: more than half the days 4. Feeling tired or having little energy: more than half the days 5. Poor appetite or overeating: more than half the days 6. Feeling bad about yourself - or that you are a failure or have let yourself or your family down: not at all 7. Trouble concentrating on things, such as reading the newspaper or watching television: not at all 8. Moving or speaking so slowly that other people could have noticed. Or the opposite - being so fidgety or restless that you have been moving around a lot more than usual: not at all 9. Thoughts that you would be better off or of hurting yourself in some way: not at all Total score: 11 Depression Screening Interpretation: Positive Depression Screening Follow-up: Existing condition and Declines treatment Depression Screening Done: Yes 96280 - PHQ-9 Billing: Yes Source: Developed by Drs. Bryant Gage, Emma Rendon, Gilbert Kuo and colleagues, with an educational babar from [employer] Thrive Questionnaire Date Thrive assessed: 10/22/24 I am a: Parent/Caregiver What is your living situation today?: I have a steady place to live Within the past 12 months, did the food you bought not last and you didn't have the money to get more?: I choose not to answer this question Within the past 12 months, did you worry whether your food would run out before you got money to buy more?: I choose not to answer this question Do you have trouble paying for medicines?: I choose not to answer this question Do you have trouble getting transportation to medical appointments?: I choose not to answer this question Do you have trouble paying your heating and electricity bill?: I choose not to answer this question Do you have trouble taking care of your child, family member or friend?: I choose not to answer this question Do you have trouble with day-to-day activities such as bathing, preparing meals, shopping, managing finances, etc.?: Yes Are you currently unemployed and looking for a job?: No Are you interested in more education?: No Please select the resources that you would like help with: None Currently or been in a relationship where the following occur: No concerns reported THRIVE Score: 0 AUDIT C Alcohol Use Questionnaire (AUDIT-C) 1. How often do you have a drink containing alcohol?: Never 3. How often do you have six or more drinks on one occasion?: Never Total Score: 0 Score Reviewed/Action Taken: Yes AISHWARAY-7 AMB Questionnaire AISHWARYA-7 Date AISHWARYA - 7 assessed: 04/08/23 Feeling nervous, anxious, or on edge: 0 = Not at all Not being able to stop or control worryin = Not at all Worrying too much about different things: 0 = Not at all Trouble relaxin = Not at all Being so restless that it is hard to sit still: 0 = Not at all Becoming easily annoyed or irritable: 0 = Not at all Feeling afraid as if something awful might happen: 0 = Not at all Total AISHWARYA-7 score (0-4 normal; 5-9 mild; 10-14 moderate; 15-21 severe): 0 Source: Developed by Drs. Bryant Gage, Emma Rendon, Gilbert Kuo and colleagues, with an educational babar from [employer] Review of Systems Const Denies chills, Reports fatigue, Denies fever(s), Denies headache(s) and Reports weight loss ENT Denies dysphagia, Denies dizziness, Denies otalgia, Denies headache(s), Denies neck pain, Denies odynophagia and Denies sore throat Card Denies chest pain, Denies palpitations and Denies dyspnea Resp Denies chest congestion, Denies cough and Denies dyspnea GI Denies abdominal pain, Denies constipation, Denies dysphagia, Denies heartburn, Denies diarrhea, Denies nausea, Denies odynophagia and Denies vomiting Denies dysuria, Denies nocturia and Denies urinary frequency Musc Reports abnormal gait (uses a walker when ambulating; has prosthetic right leg), Denies back pain and Denies neck pain Skin/Breast Denies rash Neuro Reports abnormal gait (uses a walker when ambulating; has prosthetic right leg), Reports confusion (on and off, per ), Denies dizziness, Denies headache(s) and Reports memory loss (on and off, per ) Psych Denies anxiety, Reports confusion (on and off, per ), Denies depression and Reports memory loss (on and off, per ) Endo Reports fatigue and Denies palpitations Physical exam (Primary Care) Vital Signs: Last Vital Signs Pulse 78 10/22/24 15:44 BP 118/62 10/22/24 15:44 Pulse Ox 95 10/22/24 15:44 Oxygen Delivery Method Room Air 10/22/24 15:44 BMI result Body Mass Index 18.9 Tobacco/Smoking Status: Tobacco use Status Tobacco use date assessed 10/22/24 10/22/24 15:52 Patient Tobacco Use Status Never used Tobacco 10/22/24 15:52 e-Cigarette/Vaping Use Never Used 10/22/24 15:52 PHQ-9: PHQ-9 Score PHQ-9: Total score 11 10/22/24 16:25 Depression Screening Interpretation: Positive Depression Screening Follow-up: Existing condition and Declines treatment Thrive Assessment: Date of Thrive Assessment Date Thrive assessed 04/08/23 10/22/24 15:52 Currently or been in a relationship where the following occur: No concerns reported Const General: no acute distress and confusion (on and off, per ) Orientation/consciousness: confusion (on and off, per ) Limitations: wheelchair HENMT Ears: TM's normal bilaterally and EAC's normal Throat: Yes posterior oropharynx normal and Yes tonsils normal (no TP congestion noted) Neck Neck: Yes supple and No lymphadenopathy Thyroid: Thyroid normal Resp Auscultation: clear to auscultation bilaterally, no rales and no wheezes Cardio Rate: regular rate Rhythm: regular rhythm Heart sounds: no murmurs GI Palpation (GI): Soft to palpation and nontender Auscultation: normal bowel sounds General: Yes no CVA tenderness Back/Spine/Pelvis Back: no CVA tenderness Thoracic/Lumbar Spine: lumbar spinal tenderness (mild) Skin Rashes: no rashes Neuro General: confusion (on and off, per ) Extrem Other: 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 General: Yes no clubbing, cyanosis or edema (on left lower extremity; S/P right BKA) Results AMB Hemoglobin A1c AMB Hemoglobin A1c 5.5 % Last Edit by CECILIA Anthony on 10/22/24 16:20 Results Reviewed Results Reviewed: Laboratory Last Values Hgb A1c (Clinic) 5.5 % (4.0-6.0) 10/22/24 16:19 Coding Level of Care Code Est Pt Level 4 (83707) Diagnoses Type 2 diabetes mellitus with other specified complication, with long-term current use of insulin E11.69; Z79.4 Diabetes mellitus type: type 2 Diabetes mellitus half-way insulin use: with watermaster use Diabetes mellitus complication status: with other specified complication Coronary artery disease involving [place] coronary artery of [place] heart without angina pectoris I25.10 Coronary Disease-Associated Artery/Lesion type: [place] artery [place] vs. transplanted heart: [place] heart Associated angina: without angina Mixed hyperlipidemia E78.2 Aortic valve stenosis, severe I35.0 Benign essential hypertension I10 Peripheral vascular occlusive disease I73.9 Weight loss, non-intentional R63.4 Vitamin D deficiency E55.9 REM sleep behavior disorder G47.52 Memory impairment R41.3 Episode of recurrent major depressive disorder, unspecified depression episode severity F33.9 Depression Type: major depressive disorder Major depression recurrence: recurrent Active/Remission status: currently active Major depression episode severity: unspecified Additional Codes PHQ-9 - 03686 - PHQ-9 Billing: Yes ([id number]) Assessment & Plan Assessment & Plan (1) Diabetes mellitus: Code(s): E11.9 - Type 2 diabetes mellitus without complications Category: Medical Qualifiers: Diabetes mellitus type: type 2 Diabetes mellitus half-way insulin use: with half-way use Diabetes mellitus complication status: with other specified complication Qualified Code(s): E11.69 - Type 2 diabetes mellitus with other specified complication; Z79.4 - long-term (current) use of insulin Plan: Patient's in-office HgbA1c today is at 5.5% (he was at 6.2% when he was last here in March 2023) _ goal is at least 7.0% Reinforced diabetic diet Continue Lantus 20 units Q PM, Humalog Kwikpen 8 to 18 units TID with meals per sliding scale and Metformin 1000 mg BID As he has not been seen here for follow up in over a year, will have patient go and get some follow-up labs done SERENE (2) Coronary artery disease: Comment: S/P quadruple bypass in 2013 Code(s): I25.10 - Atherosclerotic heart disease of [place] coronary artery without angina pectoris Category: Medical Qualifiers: Coronary Disease-Associated Artery/Lesion type: [place] artery [place] vs. transplanted heart: [place] heart Associated angina: without angina Qualified Code(s): I25.10 - Atherosclerotic heart disease of [place] coronary artery without angina pectoris Plan: Patient is currently asymptomatic from a cardiac standpoint Continue Aspirin 81 mg QD, Clopidogrel 75 mg QD, Isosorbide Mononitrate ER 30 mg QD and Metoprolol ER 25 mg QD He had cardiolite stress testing and echocardiogram done back in February 2023 - both tests came out okay Follow-up with cardiology as scheduled (3) Mixed hyperlipidemia: Code(s): E78.2 - Mixed hyperlipidemia Category: Medical Plan: Will have patient go and get his follow up labs done SERENE Reinforced low-cholesterol diet Continue Atorvastatin 80 mg QD; he was also on Ezetimibe 10 mg QD but appears to have stopped taking this at some point since his last visit Will have patient recheck his labs and fasting lipids in 3 months for follow-up (4) Aortic valve stenosis, severe: Comment: S/P aortic valve replacement in 2013 - Dr. Nba Calderón Code(s): I35.0 - Nonrheumatic aortic (valve) stenosis Category: Medical Plan: S/P AVR in 2013 and patient has been doing well since Continue Aspirin 81 mg QD (5) Benign essential hypertension: Code(s): I10 - Essential (primary) hypertension Category: Medical Plan: Reinforced low-sodium diet - goal is systolic BP of 120 mm or less Continue Metoprolol ER 25 mg QD (6) Peripheral vascular occlusive disease: Code(s): I73.9 - Peripheral vascular disease, unspecified Category: Medical Plan: Patient has had amputations of multiple toes on his left foot as a result of his severe vascular disease and recurrent diabetic foot infections He remains on chronic Doxycycline suppressive therapy (100 mg BID) 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 Continue Cilostazol 50 mg BID and Clopidogrel 75 mg QD Follow-up with Infectious Disease and vascular surgery as scheduled Patient also gets repeat US every 6 months for continuing surveillance to ensure that his bypass graft remains patent (7) Weight loss, non-intentional: Code(s): R63.4 - Abnormal weight loss Category: Medical Plan: Will send patient for some labs SERENE for further evaluation Will start him for now on Glucerna 1 can TID with meals until his weight loss issue can be adequately addressed (8) Vitamin D deficiency: Code(s): E55.9 - Vitamin D deficiency, unspecified Category: Medical Plan: Continue Vitamin D3 2000 units QD (9) REM sleep behavior disorder: Code(s): G47.52 - REM sleep behavior disorder Category: Medical Plan: Continue Gabapentin 600 mg Q HS (10) Memory impairment: Code(s): R41.3 - Other amnesia Category: Medical Plan: Will refer patient back to neurology for follow up and further evaluation / management (11) Depression: Code(s): F32.A - Depression, unspecified Category: Medical Qualifiers: Depression Type: major depressive disorder Major depression recurrence: recurrent Active/Remission status: currently active Major depression episode severity: unspecified Qualified Code(s): F33.9 - Major depressive disorder, recurrent, unspecified Plan: Patient was on Sertraline 50 mg QD previously but he apparently stopped taking this at some point He was then started on Escitalopram 5 mg QD a couple of years ago and he took this for a while until his stopped this due to sedation States that patient has been more alert since he stopped taking his antidepressants and he denies feeling depressed Will continue to hold off on any additional Rx at this time but they are encouraged to call if patient starts to feel progressively depressed again at any time Plan Follow up in 3 months Orders: Orders Microalbumin, Random (w Creat) 10/22/24 E11.9 - Type 2 diabetes mellitus without complications Vitamin D 25-OH Total 10/22/24 E55.9 - Vitamin D deficiency, unspecified Vitamin B12 and Folate 10/22/24 E53.8 - Deficiency of other specified B group vitamins Lipid Panel 3 Months E78.00 - Pure hypercholesterolemia, unspecified Hemoglobin A1c 3 Months E11.9 - Type 2 diabetes mellitus without complications TSH reflex Free T4 3 Months E78.00 - Pure hypercholesterolemia, unspecified Vitamin B12 and Folate 3 Months E53.8 - Deficiency of other specified B group vitamins Complete Blood Count Auto Diff 10/22/24 D64.9 - Anemia, unspecified Comprehensive [place]. Panel Fast 10/22/24 E78.00 - Pure hypercholesterolemia, unspecified Lipid Panel 10/22/24 E78.00 - Pure hypercholesterolemia, unspecified TSH reflex Free T4 10/22/24 E78.00 - Pure hypercholesterolemia, unspecified UA CC w/rflx Micro + Cult 10/22/24 R30.0 - Dysuria Complete Blood Count Auto Diff 3 Months D64.9 - Anemia, unspecified Comprehensive [place]. Panel Fast 3 Months E78.00 - Pure hypercholesterolemia, unspecified Microalbumin, Random (w Creat) 3 Months E11.9 - Type 2 diabetes mellitus without complications UA CC w/rflx Micro + Cult 3 Months R30.0 - Dysuria Vitamin D 25-OH Total 3 Months E55.9 - Vitamin D deficiency, unspecified Referrals Neurology Referral I63.9 - Cerebral infarction, unspecified, R41.3 - Other amnesia Medications: New nut.tx.gluc.intol,lac-free,soy (Glucerna oral liquid) 1 ea PO TIDWMEAL 90 multiple units 11RF weight loss/failure to thrive 30 days E11.42 - Type 2 diabetes mellitus with diabetic polyneuropathy, I63.9 - Cerebral infarction, unspecified, R62.7 - Adult failure to thrive, R63.4 - Abnormal weight loss
--- OUTSIDE RECORDS SUMMARY | 2024-10-22 17:45 | XMS_ITS | Clinical Summary ---
Author Organization [facility] it Address [address] [place] [address] Care Team Providers Care Prototype Sewer Name Role Phone Unavailable Primary Care Provider Unavailabl e Social History Tobacco Use Types Packs/Day Years Used Date Smoking Tobacco: Never Assessed Sex and Gender Information Value Date Recorded Sex Assigned at Not on file Legal Sex Male 1:54 PM EST Gender Identity Not on file Sexual Orientation Not on file Plan of Treatment Health Maintenance Due Date Last Done Comments DTaP,Tdap,and Td Vaccines (1 - Tdap) 08/15/1975 Pneumococcal Vaccine: 50+ Ye ars (1 of 1 - PCV) 2006 Zoster Vaccines (1 of 2) 2006 COVID-19 Vaccine (1 - 2023-2 5 season) 2023 Depression Screening 02/11/2024 Influenza Vaccine (#1) 2024 RSV Immunization Adult Patie nts (1 - 1-dose 75+ series) 08/15/2031 HIB Vaccines Aged Out No longer eligi ble based on patient's age to complete this topic HPV Vaccines Aged Out No longer eligi ble based on patient's age to complete this topic Hepatitis A Vaccines Aged Out No long er eligible based on patient's age to complete this topic Hepatitis B Vaccines Aged Out No long er eligible based on patient's age to complete this topic IPV Vaccines Aged Out No longer eligi ble based on patient's age to complete this topic MMR Vaccines Aged Out No longer eligi ble based on patient's age to complete this topic Meningococcal ACWY Vaccine Aged Out N o longer eligible based on patient's age to complete this topic Meningococcal B Vaccine Aged Out No l onger eligible based on patient's age to complete this topic RSV Immunization Patients Un stacey 20 months Aged Out No longer eligible b ased on patient's age to complete this topic Varicella Vaccines Aged Out No longer eligible based on patient's age to complete this topic Advance Directives Documents on File Type Date Recorded Patient Retinal Surgeon Expl anation Health Care Decision (hx) 09/08/2020 AD GARCIA DIRECTIVE Health Care Decision (hx) 08/22/2020 AD GARCIA DIRECTIVE
--- OUTSIDE RECORDS SUMMARY | 2024-10-22 17:46 | XMS_ITS | Clinical Summary ---
Author Organization [facility] Address [address] [address] Phone Care Team Providers Care Armor Reconnaissance Vehicle Crewman Name Role Phone Unavailable Primary Care Provider Unavailabl e Social History Tobacco Use Types Packs/Day Years Used Date Smoking Tobacco: Never Assessed Education Answer Date Recorded Are you interested in more education? Not on azra e 06/07/2022 Are you concerned about learning? Not on file 06/07/2022 No 06/07/2022 No 06/07/2022 Digital Access Answer Date Recorded No 07/06/2022 No 07/06/2022 No 07/06/2022 Reliable internet access at home? Not on file 07/06/2022 Device with a working camera? Not on file Sex and Gender Information Value Date Recorded Sex Assigned at Not on file Legal Sex Male 9:53 PM EDT Gender Identity Not on file Sexual Orientation Not on file Plan of Treatment Health Maintenance Due Date Last Done Comments Adult Td,Tdap Booster 1956 LIPID PANEL 1956 DEPRESSION SCREENING 1968 SMOKING Hx and SMOKELESS TOBACCO SCREENING 1969 HEPATITIS C SCREENING 1974 COLOGUARD 2001 COLONOSCOPY 2001 COLORECTAL CANCER SCREENING 2001 FIT TEST 2001 FOBT 2001 SIGMOIDOSCOPY 2001 VIRTUAL COLONOSCOPY 2001 PNEUMOCOCCAL VACCINES (50+ years) (1 of 1 - PCV) 2006 ZOSTER VACCINES (1 of 2) 2006 INFLUENZA VACCINE (#1) 2024 , 10/02/2016, 10/02/2016 COVID-19 VACCINE (3 - 2024-2 6 season) 2024 07/09/2020, 05/24/2020 RSV VACCINE (1 - 1-dose 75+ series) 08/15/2031 HEPATITIS A VACCINES Aged Out No long er eligible based on patient's age to complete this topic HIB VACCINES Aged Out No longer eligi ble based on patient's age to complete this topic MENINGOCOCCAL VACCINES (ACWY) Aged Out No longer eligible based on patient's age to complete this topic MENINGOCOCCAL VACCINES (B) Aged Out N o longer eligible based on patient's age to complete this topic Medical Devices Not on file Additional Source Comments The information contained in this document represents components of the legal health record. It is not the complete legal health record.[facility]
--- OUTSIDE RECORDS SUMMARY | 2024-10-22 17:46 | XMS_ITS | Patient Health Record ---
Author Organization [facility] Address [address] [place] [address] Care Team Providers Care Instructor Weaving Name Role Phone Tony Soto MD Primary Care Provider Jia Oseguera Unavailable [phone] Allergies Allergen (clinical drug ingredient) Drug/Non Drug Allergy documented on EMR Reaction Allergy Type Onset Date Status Penicillin Unknown Drug Allergy Active Reason For Referral No Information Medications Medication SIG (Take, Route, Frequency, Duration) Notes Start Date End Date Status Gabapentin Orally Not-Takin g Atorvastatin Calcium 80 MG 1 tablet Orally Once a day Active HumaLOG 100 UNIT/ML INJECT 50 UNITS 3 TI MES A DAY WITH MEALS Subcutaneous; Duration: 6 Active Clopidogrel Bisulfate Active Vitamin D3 1000 UNIT 1 capsule Orally On ce a day Not-Taking Atorvastatin Calcium Not-Taking Ciclopirox Olamine 0.77 % 1 application to affected area Externally Twice a day; Duration: 30 days Not-Taking Doxycycline Hyclate 100 MG 1 capsule Orally Active Plavix 75 MG Orally Not-Michael ing Isosorbide Dinitrate 30 MG 1 tablet Orally Active Sertraline HCl 50 MG Orally Not-Taking Aspirin 81 MG 1 tablet Orally Once a day Not-Taking Docusate Sodium 100 MG TAKE ONE CAPSULE TWICE A DAY NEEDED FOR CONSTIPATION Oral; Duration: 30 Not-Taking Lantus SoloStar 100 UNIT/ML INJECT 50 UNITS ONCE A DAY SUBCUTANEOUS 30 DAYS Subcutaneous; Duration: 30 Active Extra Depth Orthopedic Shoes (1 Pair) with Customized Heat Molded Multidensity Innersoles (3 Pair) as directed Dx: IDDM/PVD (E10.59), Hammertoe Foot Deformity (M20.41,M20.42), Preulcerative Skin Lesion(s) (L85.1 12/15/2017 Not-Taking metFORMIN HCl 1000 MG 1 tablet Oral twic e a day; Duration: 30 days Active Ezetimibe 10 MG TAKE 1 TABLET BY ERIK TH EVERY DAY Oral; Duration: 30 Not-Taking Immunizations Vaccine Route Administration Date Status Comme nts Influenza Unknown 10/28/2016 Administered Influenza Unknown 12/15/2017 Refused Influenza Unknown 12/22/2017 Administered Pneumococcal Unknown 10/28/2016 Administered Social History Tobacco Use: Social History Observation [...] ast year? No Points 0 Interpretation Negative Problems Problem Type SNOMED Code ICD Code Onset Dates Problem Status W/U Status Risk Notes Problem Peripheral circulatory disorder associated with type 1 diabetes mellitus (381375906) Type 1 diabetes mellitus with diabetic peripheral angiopathy without gangrene (E10.51) Active confirmed Encounters Encounter Location Date Provider Diagnosis [facility] [address] [place] [address] 02/10/2024 Jia Boss Plan Of Treatment Pending Test Test Name Order Date [id number] NAIL, 6 OR MORE 01/30/2017 [id number] NAIL, 6 OR MORE 06/16/2017 [id number] NAIL, 6 OR MORE 09/15/2017 [id number] NAIL, 6 OR MORE 12/15/2017 [id number] NAIL, 6 OR MORE 04/15/2018 25899 I&D ABSCESS- SIMPLE,SINGLE 018 64102-EUEY SKIN LESIONS, OVER 4 06/17/19 18 [id number] SKIN LESIONS, OVER 4 09/16/19 18 [id number] SKIN LESIONS, OVER 4 04/16/19 19 05724-URFU SKIN LESIONS, OVER 4 12/16/19 18 00841-IITL SKIN LESIONS, OVER 4 01/31/20 17 Insurance Providers Payer Name Payer Address Payer Phone Subscriber Number Group Number Insured Name Patient Relationship to Insured Coverage Start Date Coverage End Date Medicare National [employer] [address] [address] [id number] Tye Santos Self - patient is the insured 7 Medical (General) History Medical History History ICD Code Heart attack Diabetes mellitus High blood pressure Heart disease CAD Arthritis Depression Chicken pox Stroke Memory loss Replacement Heart Valves Surgical History Surgery Date(Month/Year) heart surgery unspecified [place] 5th [place] [place] [facility] [place] valve surgery Hospitalization History Reason Date(Month/Year) [facility] Amputation Left 5th toe 01/2018 [facility] fell and got [facility] in [facility] eye bro [facility] 09/27 [facility] [place] 5[facility] [place] [facility] [place] [facility] [place]
--- OUTSIDE RECORDS SUMMARY | 2024-10-22 17:46 | XMS_ITS ---
Author Organization [facility] on Care Team Providers Care Mediator Name Role Phone Ramsey Radha Richelle Unavailable Unavailable Allergies and adverse reactions Code CodeSystem Substance Reaction Severity StartDate Concern Status 7984 RXNORM Penicillin Unknown 10/19/2013 active Care Team Name Role Address Phone Organization Dates Radha Mustafa PCP [address] [place] [address], [id number], [place] (Office): : [facility] 10/19/2013 - 11/19/2013 Immunizations Immunization Status Vaccine Details Vaccine Code CodeSystem [place] e Notes Influenza cancelled Influenza, split virus, trivalent, injectable, contains preservative 141 CVX created date: 10/22/2013 consent date: 10/22/2013 Mental Status Section Date Assessment Total Score Description 11/19/2013 BIMS 14 cognitively int act PHQ-9 03 minimal depress ion 10/26/2013 BIMS 14 cognitively int act PHQ-9 03 minimal depress ion Reason for Referral No Reasons for Referral Entered Social History Social History Observation Description Start Date End Date Code Code System Current Smoking Status Tobacco smoking consumption unknown 261579233 SNOMED CT Sex Assigned At Male 1955 [address]0539-7 LOINC Gender Identity Sexual Orientation Vital Signs Code Code System Vitals Name Values and Units Timing Information 9279-1 LOINC Respiratory Rate Value=16.0 Units=/m in 11/19/2013 8462-4 [facility] Blood Pressure-Diastolic Value=75 Un its=mmHg 11/19/2013 8480-6 [facility] Blood Pressure-Systolic Fclhv=422 Un its=mmHg 11/19/2013 8310-5 [facility] Body Temperature Value=97.6 Units= F 11/19/2013 8867-4 [facility] Heart rate Value=93.0 Units=/min 11/2013 61095-1 [facility] O2 % BldC Oximetry Value=99.0 Units= % 11/19/2013 42430-6 [facility] Weight Obvhu=127.0 Units=Lbs 04/2013
== END 2024-10-22 16:42 | disposition home or self-care (01) ==
LOC: HO.HMCH 15:43
PROVIDERS: PCP Internal Medicine; Visit Provider Internal Medicine
DX: E11.65 Type 2 diabetes mellitus with hyperglycemia (principal)

== ENCOUNTER → 2024-10-22 15:42 | Outpatient (BNVA) | payer MEDICARE, SELFPAY | PROVIDERS: PCP Internal Medicine; Visit Provider Internal Medicine | DX: E11.42 Type 2 diabetes mellitus with diabetic polyneuropathy (principal); I25.10 Atherosclerotic heart disease of native coronary artery without angina pectoris; I42.9 Cardiomyopathy, unspecified; E78.5 Hyperlipidemia, unspecified; E11.69 Type 2 diabetes mellitus with other specified complication; E11.51 Type 2 diabetes mellitus with diabetic peripheral angiopathy without gangrene; E78.2 Mixed hyperlipidemia; I35.0 Nonrheumatic aortic (valve) stenosis; I10 Essential (primary) hypertension; R63.4 Abnormal weight loss; E55.9 Vitamin D deficiency, unspecified; G47.52 REM sleep behavior disorder; R41.3 Other amnesia; F33.9 Major depressive disorder, recurrent, unspecified; Z79.4 Long term (current) use of insulin; Z86.73 Personal history of transient ischemic attack (TIA), and cerebral infarction without residual deficits | CPT/HCPCS: 83036; 96127; 99212 ==

== ENCOUNTER 2025-01-05 11:15 | Outpatient (REF) | payer MEDICARE, SELFPAY ==
[2025-01-05 11:46] LABS: MANUAL DIFF FLAG NO
[2025-01-05 12:35] LABS: Hematocrit 39.6 % (42.0-52.0); Hemoglobin 13.2 g/dl (14.0-18.0); Imm Gran Abs Auto 0.01 X10*3/uL (0.00-0.03); Imm Gran Pct Auto 0.2 % (0.0-0.4); Lymphocytes Absolute Auto 2.4 X10*3/uL (1.2-4.9); Mean Corpuscular HGB Conc 33.3 g/dl (31.0-36.0); Mean Corpuscular Hemoglobin 30.1 pg (27.0-33.0); Mean Corpuscular Volume 90.4 fL (80.0-98.0); NRBC Abs Auto 0.000 X10*3/uL (0.0-0.012); NRBC Pct Auto 0.0 /100WBC (0.0-0.2); Platelet Count 216 X10*3/uL (160-400); Red Blood Count 4.38 X10*6/uL (4.60-5.80); White Blood Count 5.6 X10*3/uL (4.8-10.8)
[2025-01-05 12:45] LABS: Appearance Urine Clear; Glucose Urine UA Negative (Negative); PH 6.5 (5.0-9.0); Specific Gravity - Urine 1.010 (1.005-1.025)
[2025-01-05 13:08] LABS: Alanine Aminotransferase 10 U/L (0-40); Albumin Level 4.7 g/dL (3.5-5.0); Alkaline Phosphatase 64 U/L (39-117); Anion Gap 17 (12-20); Aspartate Amino Transferase 17 U/L (5-37); Blood Urea Nitrogen 26 mg/dL (9-16); Calcium 9.9 mg/dL (8.4-10.2); Carbon Dioxide 26 mmol/L (22-29); Chloride 103 mmol/L (96-108); Cholesterol 179 mg/dL (<200); Estimated Glomerular Filt Rate > 60; HDL Cholesterol 39 mg/dL (>40); Potassium 4.0 mmol/L (3.3-5.1); Sodium 142 mmol/L (135-145); Total Protein 7.2 g/dL (6.5-8.0); Triglycerides 160 mg/dL (<150)
[2025-01-05 13:16] LABS: Microalbum/Creatinine Ratio Ur 18.8 ug/mg cr (<30)
[2025-01-05 13:39] LABS: Folate 7.7 ng/mL (> or = 4.0); Vitamin B12 166 pg/mL (200-900)
--- OUTSIDE RECORDS SUMMARY | 2025-01-05 14:00 | XMS_ITS | Clinical Summary ---
Author Organization [facility] Address [address] [address] Phone Care Team Providers Care Chiropractor Sole Practitioner Name Role Phone Unavailable Primary Care Provider [...] It is not the complete legal health record.[facility]
--- OUTSIDE RECORDS SUMMARY | 2025-01-05 14:00 | XMS_ITS | Clinical Summary ---
Author Organization [facility] it Address [address] [place] [address] Care Team Providers Care Polysomnography Technician Name Role Phone Unavailable Primary Care Provider [...] 2006 Zoster Vaccines (1 of 2) 2006 Depression Screening 02/11/2024 COVID-19 Vaccine (1 - 2024-2 6 season) 2024 Influenza Vaccine (#1) 2024 RSV Immunization Adult [...] Documents on File Type Date Recorded Patient Pulper Expl anation Health Care Decision (hx) 09/08/2020 AD GARCIA DIRECTIVE Health Care Decision (hx) 08/22/2020 AD GARCIA DIRECTIVE
== END 2025-01-05 11:16 | disposition home or self-care (01) ==
LOC: HO.LAB 11:15
PROVIDERS: PCP Internal Medicine; Visit Provider Internal Medicine
DX: E11.9 Type 2 diabetes mellitus without complications (principal); E53.8 Deficiency of other specified B group vitamins; E55.9 Vitamin D deficiency, unspecified; E78.00 Pure hypercholesterolemia, unspecified; R30.0 Dysuria; D64.9 Anemia, unspecified
CPT/HCPCS: 36415; 80053; 80061; 81003; 82043; 82306; 82570; 82607; 82746; 83036; 84443; 85025